=== PATIENT | male | born 1995 | race Two or more races ===

== ENCOUNTER 2020-02-12 23:23 | Emergency (ER) | payer MEDICAID, OTHER ==
[~2020-02-12] VITALS: Ht 167.6 cm; Wt 104.3 kg
[2020-02-13] MEDS ORDERED: LORazepam 0.5 MG TAB PO ONE
[2020-02-13 02:37] VITALS: BP 109/73
== END 2020-02-13 03:02 | disposition home or self-care (01) ==
LOC: ER 23:23
DX: S41.112A Laceration without foreign body of left upper arm, initial encounter (principal); W25.XXXA Contact with sharp glass, initial encounter; Y93.89 Activity, other specified; Y92.89 Other specified places as the place of occurrence of the external cause; Y99.8 Other external cause status
CPT/HCPCS: 12004; 73060

== ENCOUNTER 2020-02-15 16:57 | Emergency (ER) | payer MEDICAID ==
[~2020-02-15] VITALS: Ht 167.6 cm; Wt 117.9 kg
[2020-02-15 17:24] VITALS: BP 113/51
== END 2020-02-15 19:49 | disposition home or self-care (01) ==
LOC: ER 16:57
DX: Z48.00 Encounter for change or removal of nonsurgical wound dressing (principal)

== ENCOUNTER 2020-02-24 17:47 | Emergency (ER) | payer MEDICAID ==
[~2020-02-24] VITALS: Ht 165.1 cm; Wt 81.6 kg
[2020-02-24 17:56] VITALS: BP 122/61
== END 2020-02-24 18:48 | disposition home or self-care (01) ==
LOC: ER 17:47
DX: Z48.00 Encounter for change or removal of nonsurgical wound dressing (principal); Z48.02 Encounter for removal of sutures

== ENCOUNTER 2023-11-12 05:40 | Emergency (ER) | payer MEDICAID ==
[~2023-11-12] VITALS: Ht 165.1 cm; Wt 100.0 kg
[2023-11-12 07:28] VITALS: BP 116/67; PULSE 86; RESP 18; TEMP 98.3; O2SAT 100
[2023-11-12 08:00] LABS: Basophils # (auto) 0.1 10 ^3/uL (0-0.2); Basophils % (auto) 0.9 % (0.0-2.0); Eosinophils # (auto) 0.3 10 ^3/uL (0-0.8); Hematocrit 46.7 % (41.0-53.0); Hemoglobin 15.7 g/dL (13.5-17.5); Lymphocytes # (auto) 1.3 10 ^3/uL (0.4-5.4); Mean Corpuscular Hemoglobin 31.6 pg (28.0-32.0); Mean Corpuscular Hgb Conc. 33.7 g/dL (32.0-36.0); Mean Corpuscular Volume 93.7 fL (80.0-100.0); Monocytes # (auto) 0.5 10 ^3/uL (0-1.3); Monocytes % (auto) 7.4 % (0.0-12.0); Neutrophils % (auto) 69.7 % (37.0-80.0); Nucleated Red Blood Cells % 0.1 %; Red Blood Cells 4.98 10^6/uL (4.5-5.90); Red Cell Distribution Width 13.4 % (11.8-14.3); White Blood Cell 7.1 10^3/uL (4.4-10.8)
[2023-11-12 08:10] LABS: Chloride 107 mmol/L (98-107); Potassium 4.3 mmol/L (3.5-5.1); Sodium 140 mmol/L (136-145)
[2023-11-12 08:11] LABS: Anion Gap 8 (5-15); Calcium 9.6 mg/dL (8.5-10.1); Carbon Dioxide 25 mmol/L (20-30)
[2023-11-12 08:15] LABS: Amphetamine Screen, Urine Neg (NEGATIVE); Barbiturate Scree,Urine Neg (NEGATIVE); Benzodiazephine Screen, Urine Neg (NEGATIVE); Cocaine Screen, Urine Neg (NEGATIVE)
[2023-11-12 08:16] LABS: Cannabinoid Screen, Urine Pos (NEGATIVE); Opiate Scree,Urine Neg (NEGATIVE); Phencyclidine Screen, Urine Neg (NEGATIVE)
[2023-11-12 08:16] LABS: BUN/Creatinine Ratio 8.9 (10.0-20.0); Blood Urea Nitrogen 9 mg/dL (9-23); Glucose 90 mg/dL (74-106)
[2023-11-12] MEDS ORDERED: HYDR50TA69 PO (08:30)
== END 2023-11-12 08:37 | disposition home or self-care (01) ==
LOC: ER 05:40
DX: F41.1 Generalized anxiety disorder (principal); F12.10 Cannabis abuse, uncomplicated; Z79.899 Other long term (current) drug therapy
CPT/HCPCS: 36415; 80048; 80307; 84484; 85025